=== PATIENT | female | born 1980 | race Caucasian/White ===

== ENCOUNTER 2017-02-06 05:17 | Emergency (ER) | payer OTHER ==
[2017-02-06 05:33] VITALS: BP 108/65
== END 2017-02-06 06:40 | disposition home or self-care (01) ==
LOC: ED 05:17
DX: J02.9 Acute pharyngitis, unspecified (principal); R07.9 Chest pain, unspecified; J45.909 Unspecified asthma, uncomplicated; G40.909 Epilepsy, unspecified, not intractable, without status epilepticus

== ENCOUNTER 2019-03-14 11:11 | Emergency (ER) | payer OTHER ==
[~2019-03-14] VITALS: Ht 162.6 cm; Wt 76.7 kg
[2019-03-14 11:14] VITALS: Ht 162.6 cm; Wt 76.7 kg
[2019-03-14 13:05] VITALS: BP 110/64
== END 2019-03-14 13:05 | disposition home or self-care (01) ==
LOC: ED 11:11
DX: S71.151A Open bite, right thigh, initial encounter (principal); Z98.51 Tubal ligation status; W61.5 Contact with goose; Y93.89 Activity, other specified; Y92.89 Other specified places as the place of occurrence of the external cause; Y99.8 Other external cause status
CPT/HCPCS: 90715

== ENCOUNTER 2020-02-26 17:38 | Emergency (ER) | payer OTHER ==
[~2020-02-26] VITALS: Ht 157.5 cm; Wt 80.7 kg
[2020-02-26 18:08] VITALS: Ht 157.5 cm; Wt 80.7 kg
[2020-02-26 19:39] VITALS: BP 122/76
== END 2020-02-26 19:36 | disposition home or self-care (01) ==
LOC: ED 17:38
DX: S93.601A Unspecified sprain of right foot, initial encounter (principal); S93.401A Sprain of unspecified ligament of right ankle, initial encounter; J45.909 Unspecified asthma, uncomplicated; W01.0XXA Fall on same level from slipping, tripping and stumbling without subsequent striking against object, initial encounter; Y93.89 Activity, other specified; Y92.89 Other specified places as the place of occurrence of the external cause; Y99.8 Other external cause status
CPT/HCPCS: Q0092

== ENCOUNTER 2020-05-16 14:33 | Emergency (ER) | payer OTHER, SELFPAY ==
[~2020-05-16] VITALS: Ht 162.6 cm; Wt 77.1 kg
[2020-05-16 14:35] VITALS: Ht 162.6 cm; Wt 77.1 kg
[2020-05-16 15:31] VITALS: BP 120/85
== END 2020-05-16 15:31 | disposition home or self-care (01) ==
LOC: ED 14:33
DX: U07.1 COVID-19 (principal); J45.909 Unspecified asthma, uncomplicated; Z98.890 Other specified postprocedural states
CPT/HCPCS: U0003